=== PATIENT | female | born 1960 | race Caucasian/White ===

== ENCOUNTER 2022-08-03 10:38 | Inpatient (IN) ==
[2022-08-03] MEDS ORDERED: cefTRIAXone 2 gm/50 mL D5W 2 GM/50 ML BAG IV ONE ×2 (11:18→14:46)
[2022-08-03] MEDS ORDERED: Vancomycin 1,500 MG in NS 0.9% 250 ml 250 ML IVPB ONE (11:18)
[2022-08-03] MEDS ORDERED: Magnesium Hydroxide LIQ 30 ML UDC PO PRN (11:57)
[2022-08-03] MEDS ORDERED: Ondansetron ODT 4 mg TAB 4 MG TAB PO PRN (11:57)
[2022-08-03] MEDS ORDERED: Lactulose 30 ml UDC PO PRN (11:57)
[2022-08-03] MEDS ORDERED: Vancomycin per Pharmacy 1 EA NOTE FOLLOW UP SCH (13:00)
[2022-08-03] MEDS ORDERED: Bupivacaine 0.25% SDV 30 ML ONE (14:05)
[2022-08-03 14:18] LABS: ABS Eosinophils 0.1 10^3/ul (0-0.6); ABS Lymphocytes 2.8 10^3/ul (1.0-4.8); ABS Monocytes 0.6 10^3/ul (0-0.8); ABS Neutrophils 3.7 10^3/ul (1.5-7.7); Eosinophil % 1.4 %; Hematocrit 34 % (35-47); Hemoglobin 11.2 g/dL (12.0-16.0); Lymphocyte % 38.7 %; Mean Corpuscular HGB Conc 33 g/dL (31-36); Mean Corpuscular Hemoglobin 31 pg (27-31); Mean Corpuscular Volume 93 fL (80-97); Mean Platelet Volume 7.8 fL (7.4-10.4); Nucleated Red Blood Cells % 0.1; Platelet Count 240 10^3/uL (150-450); Red Blood Count 3.64 10^6 /uL (3.70-4.87); Red Cell Distribution Width 13 % (10-15); White Blood Count 7.3 10^3/uL (3.5-10.8)
[2022-08-03] MEDS ORDERED: Buffered Lidocaine 1% SYRIN 1 ml INTRADERM ONE (14:24)
[2022-08-03] MEDS ORDERED: Lidocaine 2% PF 5 ML VIAL ONE (14:50)
[2022-08-03] MEDS ORDERED: Dexamethasone IV 4 MG/ML VIAL 1 ml VIAL ONE (14:50)
[2022-08-03] MEDS ORDERED: Ondansetron 4 mg VIAL 2 MG/ML 2 ml VIAL ONE (14:50)
[2022-08-03] MEDS ORDERED: Propofol 10 MG/ML 20 ML BTL ONE (14:50)
[2022-08-03 14:59] LABS: Albumin 4.1 g/dL (3.2-5.2); C Reactive Protein 9.5 mg/L (<8.01); Globulin 2.1 g/dL (2-4); Potassium 4.4 mmol/L (3.5-5.0); Total Bilirubin 1.1 mg/dL (0.2-1.0); Total Protein 6.2 g/dL (6.4-8.9); eGFR CKD-EPI 64.5 (>60)
[2022-08-03] MEDS: Lactated Ringers 1000 ml BAG 1,000 ML IV SCH ×2 (15:19→21:51)
[2022-08-03] MEDS ORDERED: fentaNYL 100 mcg/2 ml 50 MCG/ML VIAL ONE ×3 (15:39→19:54)
[2022-08-03] MEDS ORDERED: Metoclopramide 5 MG/ML VIAL (10 mg) ONE (16:28)
[2022-08-03] MEDS ORDERED: Vancomycin 1,000 MG VIAL ONE (17:44)
[2022-08-03] MEDS ORDERED: HYDROmorphone 0.5 MG/0.5 ML SYRINGE ONE (17:56)
[2022-08-03] MEDS ORDERED: Naloxone 0.4 mg VIAL 0.4 mg/ml 1 ml VIAL IV PRN (17:57)
[2022-08-03] MEDS ORDERED: Ondansetron 4 mg VIAL 2 MG/ML 2 ml VIAL IV PRN (17:57)
[2022-08-03] MEDS: fentaNYL 100 mcg/2 ml 50 MCG/ML VIAL IV PRN ×5 (18:42→19:56)
[2022-08-03] MEDS: Magnesium Hydroxide LIQ 30 ML UDC PO SCH (21:53)
[2022-08-04] MEDS: Vancomycin 750 MG in NS 0.9% 250 ML IVPB SCH ×2 (05:20→18:03)
[2022-08-04 06:18] LABS: eGFR CKD-EPI 73.3 (>60)
[2022-08-04 08:54] LABS: Hematocrit 32 % (35-47); Mean Platelet Volume 8.1 fL (7.4-10.4); Platelet Count 231 10^3/uL (150-450)
[2022-08-04 08:56] LABS: Calcium 8.2 mg/dL (8.6-10.3); Potassium 4.4 mmol/L (3.5-5.0)
[2022-08-04] MEDS: Vitamin THERAPEUTIC TAB PO SCH (09:56)
[2022-08-04] MEDS: Magnesium Hydroxide LIQ 30 ML UDC PO SCH ×2 (09:56→22:35)
[2022-08-04 13:03] LABS: ABS Lymphocytes 2.7 10^3/ul (1.0-4.8); ABS Monocytes 1.3 10^3/ul (0-0.8); ABS Neutrophils 6.1 10^3/ul (1.5-7.7); Eosinophil % 0.1 %; Hematocrit 30 % (35-47); Hemoglobin 10.2 g/dL (12.0-16.0); Lymphocyte % 26.8 %; Mean Corpuscular HGB Conc 34 g/dL (31-36); Mean Corpuscular Hemoglobin 31 pg (27-31); Mean Corpuscular Volume 93 fL (80-97); Mean Platelet Volume 7.6 fL (7.4-10.4); Platelet Count 247 10^3/uL (150-450); Red Blood Count 3.27 10^6 /uL (3.70-4.87); Red Cell Distribution Width 13 % (10-15); White Blood Count 10.1 10^3/uL (3.5-10.8)
[2022-08-04 13:47] LABS: Calcium (PTH Intact) 8.4 mg/dL (8.6-10.3); eGFR CKD-EPI 78.7 (>60)
[2022-08-04 13:54] LABS: Activated Partial Thrombo Time 23.9 seconds (26.0-38.0); INR 0.91 (0.89-1.11)
[2022-08-04] MEDS: cefTRIAXone 2 gm/50 mL D5W 2 GM/50 ML BAG IV SCH (15:44)
[2022-08-04] MEDS: Heparin 5000 UNITS/ML 1 mL VIAL SUBCUT SCH (20:11)
[2022-08-05] MEDS ORDERED: Vancomycin Trough Check NOTE FOLLOW UP ONE ×2 (05:30)
[2022-08-05] MEDS: Vancomycin 750 MG in NS 0.9% 250 ML IVPB SCH ×2 (06:55→18:29)
[2022-08-05] MEDS: Vitamin THERAPEUTIC TAB PO SCH (10:50)
[2022-08-05] MEDS: Heparin 5000 UNITS/ML 1 mL VIAL SUBCUT SCH ×2 (10:51→20:52)
[2022-08-05] MEDS: Magnesium Hydroxide LIQ 30 ML UDC PO SCH ×2 (10:51→21:26)
[2022-08-05] MEDS: cefTRIAXone 2 gm/50 mL D5W 2 GM/50 ML BAG IV SCH (14:36)
[2022-08-05] MEDS ORDERED: Lidocaine 2% JELLY 6 ML Topical TOPICAL ONE (21:26)
[2022-08-06 05:43] LABS: Calcium 8.8 mg/dL (8.6-10.3); Potassium 4.6 mmol/L (3.5-5.0)
[2022-08-06 05:49] LABS: eGFR CKD-EPI 68.6 (>60)
[2022-08-06 05:57] LABS: Hematocrit 33 % (35-47); Hemoglobin 10.6 g/dL (12.0-16.0); Mean Corpuscular HGB Conc 33 g/dL (31-36); Mean Corpuscular Hemoglobin 31 pg (27-31); Mean Corpuscular Volume 94 fL (80-97); Red Blood Count 3.44 10^6 /uL (3.70-4.87); Red Cell Distribution Width 13 % (10-15); White Blood Count 7.5 10^3/uL (3.5-10.8)
[2022-08-06] MEDS: Vancomycin 750 MG in NS 0.9% 250 ML IVPB SCH ×2 (07:22→19:33)
[2022-08-06 07:27] LABS: ABS Eosinophils 0.2 10^3/ul (0-0.6); ABS Lymphocytes 4.9 10^3/ul (1.0-4.8); ABS Monocytes 0.5 10^3/ul (0-0.8); ABS Neutrophils 1.9 10^3/ul (1.5-7.7); Eosinophil % 3.2 %; Mean Platelet Volume 9.4 fL (7.4-10.4); Nucleated Red Blood Cells % 0.3; Platelet Count 215 10^3/uL (150-450)
[2022-08-06] MEDS: Vitamin THERAPEUTIC TAB PO SCH (08:27)
[2022-08-06] MEDS: Morphine 2 MG/ML SYRINGE IV PRN (08:28)
[2022-08-06] MEDS: Magnesium Hydroxide LIQ 30 ML UDC PO SCH ×2 (08:34→21:18)
[2022-08-06] MEDS ORDERED: Lidocaine 2.5%/Prilocain 2.5% 5 GM TUBE ONE (08:45)
[2022-08-06] MEDS ORDERED: Lidocaine 5% OINT TUBE TOPICAL PRN (08:56)
[2022-08-06] MEDS ORDERED: Bupivacaine 0.25% SDV 30 ML ONE (12:27)
[2022-08-06] MEDS ORDERED: Propofol 10 MG/ML 20 ML BTL ONE (12:56)
[2022-08-06] MEDS ORDERED: Lidocaine 2% PF 5 ML VIAL ONE (12:56)
[2022-08-06] MEDS ORDERED: Dexamethasone IV 4 MG/ML VIAL 1 ml VIAL ONE (12:56)
[2022-08-06] MEDS ORDERED: Ondansetron 4 mg VIAL 2 MG/ML 2 ml VIAL ONE (12:56)
[2022-08-06] MEDS ORDERED: Midazolam 2 mg/2 ml VIAL 1 mg/ml 2 ml VIAL (2 mg) ONE (12:57)
[2022-08-06] MEDS ORDERED: fentaNYL 250 mcg/5 ml 50 MCG/ML 5 ml VIAL (250 MCG) ONE (12:57)
[2022-08-06] MEDS ORDERED: Phenylephrine 40 mcg/mL 10mL (400mcg) SYRINGE ONE (14:49)
[2022-08-06] MEDS: cefTRIAXone 2 gm/50 mL D5W 2 GM/50 ML BAG IV SCH (16:02)
[2022-08-06] MEDS ORDERED: Naloxone 0.4 mg VIAL 0.4 mg/ml 1 ml VIAL IV PRN (16:44)
[2022-08-06] MEDS ORDERED: fentaNYL 100 mcg/2 ml 50 MCG/ML VIAL ONE (16:52)
[2022-08-06] MEDS: fentaNYL 100 mcg/2 ml 50 MCG/ML VIAL IV PRN ×2 (16:53→17:14)
[2022-08-06] MEDS ORDERED: HYDROmorphone 1 MG/1 ML SYRINGE ONE (17:24)
[2022-08-06] MEDS: HYDROmorphone 1 MG/1 ML SYRINGE IV PRN ×2 (17:25→17:32)
[2022-08-07] MEDS: Lactated Ringers 1000 ml BAG 1,000 ML IV SCH (00:28)
[2022-08-07] MEDS ORDERED: Vancomycin Trough Check NOTE FOLLOW UP ONE (05:30)
[2022-08-07 06:04] LABS: ABS Lymphocytes 1.4 10^3/ul (1.0-4.8); ABS Monocytes 0.6 10^3/ul (0-0.8); ABS Neutrophils 4.8 10^3/ul (1.5-7.7); Eosinophil % 0.1 %; Hematocrit 31 % (35-47); Hemoglobin 10.5 g/dL (12.0-16.0); Lymphocyte % 20.2 %; Mean Corpuscular HGB Conc 34 g/dL (31-36); Mean Corpuscular Hemoglobin 31 pg (27-31); Mean Corpuscular Volume 93 fL (80-97); Mean Platelet Volume 7.5 fL (7.4-10.4); Platelet Count 274 10^3/uL (150-450); Red Blood Count 3.35 10^6 /uL (3.70-4.87); Red Cell Distribution Width 13 % (10-15); White Blood Count 6.8 10^3/uL (3.5-10.8)
[2022-08-07 06:15] LABS: Calcium 8.4 mg/dL (8.6-10.3); Potassium 4.6 mmol/L (3.5-5.0)
[2022-08-07 06:21] LABS: Vancomycin Trough 13.7 mcg/mL; eGFR CKD-EPI 79.8 (>60)
[2022-08-07] MEDS: Vancomycin 750 MG in NS 0.9% 250 ML IVPB SCH (06:25)
[2022-08-07] MEDS: Magnesium Hydroxide LIQ 30 ML UDC PO SCH ×2 (09:03→20:35)
[2022-08-07] MEDS: Vitamin THERAPEUTIC TAB PO SCH (09:03)
[2022-08-07] MEDS: Heparin 5000 UNITS/ML 1 mL VIAL SUBCUT SCH ×2 (09:05→20:35)
[2022-08-07] MEDS: Morphine 2 MG/ML SYRINGE IV PRN (15:33)
[2022-08-07] MEDS: cefTRIAXone 2 gm/50 mL D5W 2 GM/50 ML BAG IV SCH (15:35)
[2022-08-07] MEDS: Vancomycin 1000 MG in NS 0.9% 250 ML IVPB SCH (17:51)
[2022-08-08] MEDS: Vancomycin 1000 MG in NS 0.9% 250 ML IVPB SCH ×2 (05:18→22:59)
[2022-08-08 06:05] LABS: Hematocrit 31 % (35-47); Hemoglobin 10.1 g/dL (12.0-16.0); Mean Corpuscular HGB Conc 33 g/dL (31-36); Mean Corpuscular Hemoglobin 31 pg (27-31); Mean Corpuscular Volume 93 fL (80-97); Mean Platelet Volume 7.3 fL (7.4-10.4); Platelet Count 296 10^3/uL (150-450); Red Blood Count 3.31 10^6 /uL (3.70-4.87); Red Cell Distribution Width 13 % (10-15); White Blood Count 6.8 10^3/uL (3.5-10.8)
[2022-08-08 06:21] LABS: Calcium 8.9 mg/dL (8.6-10.3); Potassium 4.5 mmol/L (3.5-5.0); eGFR CKD-EPI 65.3 (>60)
[2022-08-08] MEDS ORDERED: Bupivacaine 0.25% SDV 30 ML ONE (07:56)
[2022-08-08] MEDS ORDERED: Propofol 10 MG/ML 20 ML BTL ONE ×6 (08:44→16:30)
[2022-08-08] MEDS ORDERED: Propofol 10 mg/ml 100 ML BTL 100 ML ONE (08:46)
[2022-08-08 08:49] LABS: ABS Eosinophils 0.3 10^3/ul (0-0.6); ABS Monocytes 0.5 10^3/ul (0-0.8); Eosinophil % 3.8 %; Nucleated Red Blood Cells % 0.1
[2022-08-08] MEDS ORDERED: HYDROmorphone 0.5 MG/0.5 ML SYRINGE ONE ×3 (09:49→15:49)
[2022-08-08] MEDS ORDERED: Lidocaine 2% PF 5 ML VIAL ONE (09:49)
[2022-08-08] MEDS ORDERED: Sodium Chloride 0.9% 10 ML ONE ×2 (11:41→12:10)
[2022-08-08] MEDS ORDERED: Ketamine HCL 50 mg/ml 10 ml VIAL (500 MG) ONE (11:41)
[2022-08-08] MEDS ORDERED: Dexmedetomidine 200 mcg/2 ml 2 ml VIAL (200 mcg) ONE (12:10)
[2022-08-08] MEDS: Vitamin THERAPEUTIC TAB PO SCH (13:08)
[2022-08-08] MEDS: Magnesium Hydroxide LIQ 30 ML UDC PO SCH ×2 (13:08→23:18)
[2022-08-08] MEDS ORDERED: ceFAZolin 1 GM ADVAN 1 GM ADDV.VIAL IVPB ONE (15:21)
[2022-08-08] MEDS ORDERED: Acetaminophen IV 1 GM/100ML 1,000 MG/100 ML BAG IV ONE (15:30)
[2022-08-08] MEDS ORDERED: Vancomycin 1,000 MG VIAL ONE (15:30)
[2022-08-08] MEDS ORDERED: Naloxone 0.4 mg VIAL 0.4 mg/ml 1 ml VIAL IV PRN (16:08)
[2022-08-08] MEDS ORDERED: Ondansetron 4 mg VIAL 2 MG/ML 2 ml VIAL ONE (16:31)
[2022-08-08] MEDS ORDERED: HYDROmorphone 1 MG/1 ML SYRINGE ONE ×3 (17:27→21:20)
[2022-08-08] MEDS: HYDROmorphone 1 MG/1 ML SYRINGE IV PRN ×5 (17:28→21:21)
[2022-08-08] MEDS: cefTRIAXone 2 gm/50 mL D5W 2 GM/50 ML BAG IV SCH ×2 (22:58→23:13)
[2022-08-08] MEDS: Lactated Ringers 1000 ml BAG 1,000 ML IV SCH (23:09)
[2022-08-09] MEDS: Vancomycin 1000 MG in NS 0.9% 250 ML IVPB SCH ×2 (00:06→12:37)
[2022-08-09] MEDS: Morphine 2 MG/ML SYRINGE IV PRN ×7 (01:59→21:37)
[2022-08-09] MEDS: Ondansetron 4 mg VIAL 2 MG/ML 2 ml VIAL IV PRN ×2 (02:52→08:45)
[2022-08-09] MEDS ORDERED: Morphine 10 MG/ML VIAL (1 ml) IV PRN (08:24)
[2022-08-09] MEDS: Magnesium Hydroxide LIQ 30 ML UDC PO SCH ×2 (10:34→21:10)
[2022-08-09] MEDS: Vitamin THERAPEUTIC TAB PO SCH (10:34)
[2022-08-09] MEDS: Aspirin EC 325 mg TAB.EC PO SCH (10:34)
[2022-08-09] MEDS: Lactated Ringers 1000 ml BAG 1,000 ML IV SCH ×2 (10:56→20:29)
[2022-08-09] MEDS ORDERED: Morphine 2 MG/ML SYRINGE IV SCH (12:00)
[2022-08-09] MEDS: cefTRIAXone 2 gm/50 mL D5W 2 GM/50 ML BAG IV SCH (21:38)
[2022-08-10] MEDS: Vancomycin 1000 MG in NS 0.9% 250 ML IVPB SCH ×2 (00:12→13:30)
[2022-08-10] MEDS: Morphine 2 MG/ML SYRINGE IV PRN ×3 (01:51→23:34)
[2022-08-10] MEDS: Lactated Ringers 1000 ml BAG 1,000 ML IV SCH (04:50)
[2022-08-10] MEDS ORDERED: Vancomycin Trough Check NOTE FOLLOW UP ONE ×2 (05:30→11:30)
[2022-08-10 05:58] LABS: ABS Eosinophils 0.3 10^3/ul (0-0.6); ABS Lymphocytes 1.5 10^3/ul (1.0-4.8); ABS Monocytes 1.1 10^3/ul (0-0.8); ABS Neutrophils 4.2 10^3/ul (1.5-7.7); Hematocrit 29 % (35-47); Hemoglobin 9.4 g/dL (12.0-16.0); Lymphocyte % 20.8 %; Mean Corpuscular HGB Conc 33 g/dL (31-36); Mean Corpuscular Hemoglobin 31 pg (27-31); Mean Corpuscular Volume 95 fL (80-97); Platelet Count 247 10^3/uL (150-450); Red Blood Count 3.02 10^6 /uL (3.70-4.87); Red Cell Distribution Width 13 % (10-15); White Blood Count 7.1 10^3/uL (3.5-10.8)
[2022-08-10 06:24] LABS: Calcium 8.1 mg/dL (8.6-10.3); Potassium 3.9 mmol/L (3.5-5.0); eGFR CKD-EPI 79.8 (>60)
[2022-08-10] MEDS: Magnesium Hydroxide LIQ 30 ML UDC PO SCH ×2 (09:36→21:17)
[2022-08-10] MEDS: Vitamin THERAPEUTIC TAB PO SCH (09:38)
[2022-08-10] MEDS: Aspirin EC 325 mg TAB.EC PO SCH (09:38)
[2022-08-10 12:18] LABS: Vancomycin Trough 12.8 mcg/mL; eGFR CKD-EPI 82.2 (>60)
[2022-08-10] MEDS: cefTRIAXone 2 gm/50 mL D5W 2 GM/50 ML BAG IV SCH (23:20)
[2022-08-11] MEDS: Vancomycin 1000 MG in NS 0.9% 250 ML IVPB SCH ×2 (00:41→13:30)
[2022-08-11 05:35] LABS: Potassium 4.1 mmol/L (3.5-5.0)
[2022-08-11 05:40] LABS: ABS Eosinophils 0.4 10^3/ul (0-0.6); ABS Lymphocytes 1.7 10^3/ul (1.0-4.8); ABS Monocytes 0.8 10^3/ul (0-0.8); ABS Neutrophils 3.2 10^3/ul (1.5-7.7); Eosinophil % 6.1 %; Hematocrit 24 % (35-47); Hemoglobin 7.7 g/dL (12.0-16.0); Lymphocyte % 28.4 %; Mean Corpuscular HGB Conc 32 g/dL (31-36); Mean Corpuscular Hemoglobin 31 pg (27-31); Mean Corpuscular Volume 97 fL (80-97); Mean Platelet Volume 7.6 fL (7.4-10.4); Nucleated Red Blood Cells % 0.1; Platelet Count 224 10^3/uL (150-450); Red Blood Count 2.47 10^6 /uL (3.70-4.87); Red Cell Distribution Width 14 % (10-15); White Blood Count 6.1 10^3/uL (3.5-10.8); eGFR CKD-EPI 83.5 (>60)
[2022-08-11] MEDS: Magnesium Hydroxide LIQ 30 ML UDC PO SCH ×2 (09:17→21:32)
[2022-08-11] MEDS: Aspirin EC 325 mg TAB.EC PO SCH (09:19)
[2022-08-11] MEDS: Vitamin THERAPEUTIC TAB PO SCH (09:19)
[2022-08-11 17:12] LABS: Hematocrit 24 % (35-47); Hemoglobin 7.7 g/dL (12.0-16.0)
[2022-08-12] MEDS ORDERED: Lidocaine 4% CREAM (LMX) 5 GM TUBE TOPICAL ONE (06:33)
[2022-08-12 07:52] LABS: ABS Eosinophils 0.3 10^3/ul (0-0.6); ABS Lymphocytes 1.8 10^3/ul (1.0-4.8); ABS Monocytes 0.6 10^3/ul (0-0.8); ABS Neutrophils 2.5 10^3/ul (1.5-7.7); Eosinophil % 6.2 %; Hematocrit 28 % (35-47); Hemoglobin 9.1 g/dL (12.0-16.0); Lymphocyte % 34.2 %; Mean Corpuscular HGB Conc 33 g/dL (31-36); Mean Corpuscular Hemoglobin 32 pg (27-31); Mean Corpuscular Volume 96 fL (80-97); Mean Platelet Volume 6.6 fL (7.4-10.4); Platelet Count 295 10^3/uL (150-450); Red Blood Count 2.87 10^6 /uL (3.70-4.87); Red Cell Distribution Width 14 % (10-15); White Blood Count 5.2 10^3/uL (3.5-10.8)
[2022-08-12 08:14] LABS: Blood Urea Nitrogen 11 mg/dL (6-24); CO2 Carbon Dioxide 26 mmol/L (22-32); Calcium 8.3 mg/dL (8.6-10.3); Chloride 105 mmol/L (101-111); Glucose 89 mg/dL (70-100); Sodium 139 mmol/L (135-145); eGFR CKD-EPI 87.4 (>60)
[2022-08-12] MEDS: Aspirin EC 325 mg TAB.EC PO SCH (08:34)
[2022-08-12] MEDS: Vitamin THERAPEUTIC TAB PO SCH (08:34)
[2022-08-12] MEDS: Magnesium Hydroxide LIQ 30 ML UDC PO SCH (08:34)
[2022-08-12 08:40] LABS: Anion Gap 8 mmol/L (2-11)
[2022-08-12 11:17] VITALS: BP 106/67
== END 2022-08-12 13:00 | disposition home or self-care (01) | DRG 315 ==
LOC: SSU 10:38 → ED 10:38 → SUATTDRO 11:57 → OBSVTOIN 20:10
PROVIDERS: ADMIT Internal Medicine; ATTEND Internal Medicine